=== PATIENT | male | born 1935 | race Caucasian/White ===

== ENCOUNTER 2017-02-16 14:35 | Emergency (ER) | payer OTHER, BC ==
[~2017-02-16] VITALS: Ht 182.9 cm; Wt 88.7 kg
[~2017-02-16 14:35] MED LIST: AUGMENTIN875 MG PO; COUMADIN5 MG PO; DIGOXIN250 MCG PO; DILAUDID2 MG PO; MESTINON60 MG PO; MIRALAX17 GM PO
[2017-02-16 15:30] LABS: HEMATOCRIT 45.9 % (38.0-50.0); MCH 30.2 PG (29.0-34.0); PLATELET COUNT 185 K/uL (156-360); RBC DIS.WIDTH-CV 13.4 % (11.8-14.6); RBC DIS.WIDTH-SD 44.1 % (39-53); RED BLOOD COUNT 5.16 M/uL (4.00-5.50); WHITE BLOOD COUNT 9.4 K/uL (4.1-10.2)
[2017-02-16 15:44] LABS: CHLORIDE 107 mEq/L (99-109); POTASSIUM 3.8 mEq/L (3.7-5.4); SODIUM 139 mEq/L (136-147)
[2017-02-16 15:46] LABS: GLUCOSE 102 mg/dL (70-99)
[2017-02-16 15:48] LABS: ANION GAP 12 MEQ/L (2-14)
[2017-02-16 15:50] LABS: GFR ESTIMATE (CALCULATED) 52 mL/min/
[2017-02-16 15:51] LABS: UREA NITROGEN (BUN) 25 mg/dL (9-23)
[2017-02-16] MEDS ORDERED: MILLIPRED5 MG PO (19:01)
[2017-02-16 19:44] VITALS: BP 103/57
== END 2017-02-16 19:46 | disposition home or self-care (01) ==
LOC: EME 14:35
DX: G70.01 Myasthenia gravis with (acute) exacerbation (principal); Z87.891 Personal history of nicotine dependence
CPT/HCPCS: 70450; 80048; 85027; 93005; 99281; 99284; J7512